=== PATIENT | female | born 1970 | race Hispanic/Latino ===

== ENCOUNTER → 2017-03-13 | Outpatient (CLI) | payer BC ==
[~2017-03-13] MED LIST: ATOR20TA65 PO; FLUO-126 PO; GABA-529 PO; HYDR25TA PO; INSU100I24 SQ; LISI40TA4 PO; METF500T6 PO; PANT40TA25 PO
== END | disposition home or self-care (01) ==
LOC: RAH 14:20
PROVIDERS: ATTEND Internal Medicine
DX: N64.4 Mastodynia (principal); R92.8 Other abnormal and inconclusive findings on diagnostic imaging of breast
CPT/HCPCS: 76641; 77065

== ENCOUNTER → 2017-06-25 | Outpatient (CLI) | payer BC | LOC: RAH 15:44 | PROVIDERS: ATTEND Internal Medicine | DX: R07.81 Pleurodynia (principal) | CPT/HCPCS: 71100 ==

== ENCOUNTER 2017-07-19 13:40 | Inpatient (IN) | payer BC ==
[~2017-07-19] VITALS: Ht 165.1 cm; Wt 118.1 kg
[2017-07-19] MEDS ORDERED: IPRATROPIUM/ALBUTEROL SULFATE 3 ML SOLUTION IH ONE (14:00)
[2017-07-19 14:24] LABS: BASOPHILS % (AUTO) 0.4 % (0.0-5.0); HEMATOCRIT 36.6 % (36-48); MEAN CORPUSCULAR HEMOGLOBIN 30.6 pg (27.0-33.0); MEAN CORPUSCULAR HGB CONC 34.3 g/dL (32.0-36.0); MEAN CORPUSCULAR VOLUME 89.1 fL (79-99); MONOCYTES % (AUTO) 5.3 % (3.0-13.0); NEUTROPHILS % (AUTO) 60.3 % (40.0-77.0); NUCLEATED RED BLOOD CELLS 0.1 % (0.0-0.19); PLATELET COUNT (AUTO) 273 K/uL (130-400); RED BLOOD CELL COUNT(AUTO) 4.11 MIL/uL (4.00-5.50); RED CELL DISTRIBUTION WIDTH 13.1 % (11.0-15.5); WHITE BLOOD COUNT (AUTO) 8.5 K/uL (4.8-10.8)
[2017-07-19 14:43] LABS: CREATININE 0.7 mg/dL (0.5-1.5); POTASSIUM 3.9 mmol/L (3.5-5.1)
[2017-07-19 15:00] LABS: ALBUMIN 3.1 g/dL (3.5-5.0); BILIRUBIN,TOTAL 0.3 mg/dL (0.2-1.0); CREATINE KINASE MB 0.5 ng/mL (0.5-3.6); TOTAL PROTEIN, SERUM 7.3 g/dL (6.0-8.3)
[2017-07-19] MEDS ORDERED: NITROGLYCERIN 0.4 MG SL TAB SL ONE (15:48)
[2017-07-19] MEDS ORDERED: ASPIRIN 325 MG TABLET ONE (15:48)
[2017-07-19 17:02] VITALS: BP 103/72
[2017-07-19] MEDS ORDERED: INSU100I24 SQ (18:10)
[2017-07-19] MEDS ORDERED: FLUO-126 PO (18:10)
[2017-07-19] MEDS ORDERED: GABA-529 PO ×2 (18:10)
[2017-07-19] MEDS ORDERED: METF500T6 PO (18:10)
[2017-07-19] MEDS ORDERED: LISI40TA4 PO (18:10)
[2017-07-19] MEDS ORDERED: ATOR20TA65 PO (18:10)
[2017-07-19] MEDS ORDERED: GLUCAGON 1MG KIT 1 MG ML IM PRN (19:00)
[2017-07-19] MEDS ORDERED: ACETAMINOPHEN 325 MG TAB PO PRN (19:00)
[2017-07-19] MEDS ORDERED: MORPHINE SULFATE 4 MG/1ML SYG IVP PRN (19:00)
[2017-07-19] MEDS ORDERED: DEXTROSE 50%-WATER 50 ML DISP.SYRIN IV PRN (19:00)
[2017-07-19] MEDS: NITROGLYCERIN 1GM/1 INCH PACKET TD SCH (19:03)
[2017-07-19 20:19] VITALS: BP 116/43
[2017-07-19] MEDS: INSULIN R PO SS1 SQ SCH (21:00)
[2017-07-19 21:14] LABS: CREATINE KINASE, TOTAL 44 U/L (21-232); TROPONIN I < 0.04 ng/mL (0.00-0.06)
[2017-07-19 21:42] LABS: CREATINE KINASE MB 0.7 ng/mL (0.5-3.6); MYOGLOBIN 29 ng/mL (10-92)
[2017-07-19] MEDS: METOPROLOL TARTRATE 25 MG TAB PO SCH (21:50)
[2017-07-19] MEDS: ONDANSETRON HCL 4 MG/2 ML VIAL IVP PRN (21:50)
[2017-07-19 23:41] VITALS: BP 126/54
[2017-07-20] VITALS (12 sets, daily range): BP systolic 96–117; BP diastolic 56–73
[2017-07-20] MEDS: NITROGLYCERIN 1GM/1 INCH PACKET TD SCH (02:41)
[2017-07-20 03:18] LABS: HEMOGLOBIN A1C 7.3 % (4.0-6.0)
[2017-07-20 03:21] LABS: INR 0.95 (0.85-1.15)
[2017-07-20 03:33] LABS: CREATINE KINASE MB 0.6 ng/mL (0.5-3.6); CREATINE KINASE, TOTAL 41 U/L (21-232); MYOGLOBIN 28 ng/mL (10-92); TROPONIN I < 0.04 ng/mL (0.00-0.06)
[2017-07-20] MEDS: INSULIN R PO SS1 SQ SCH ×4 (06:31→20:57)
[2017-07-20] MEDS: METOPROLOL TARTRATE 25 MG TAB PO SCH ×3 (09:00→21:01)
[2017-07-20] MEDS: ASPIRIN 325 MG TABLET PO SCH (09:08)
[2017-07-20] MEDS ORDERED: NITROGLYCERIN 1GM/1 INCH PACKET TD SCH (10:46)
[2017-07-20] MEDS: MORPHINE SULFATE 4 MG/1ML SYG IVP PRN ×2 (11:45→18:13)
[2017-07-20] MEDS: ONDANSETRON HCL 4 MG/2 ML VIAL IVP PRN (11:45)
[2017-07-20] MEDS ORDERED: BIVALIRUDIN 250 MG/VIAL IV ONE (12:29)
[2017-07-20] MEDS ORDERED: IOPAMIDOL-370 100 ML VIAL IV ONE (12:29)
[2017-07-20] MEDS ORDERED: HEPARIN SODIUM 1000UNIT/ML 10ML VIAL ONE (12:29)
[2017-07-20] MEDS ORDERED: NITROGLYCERIN 5 MG/ML 10 ML VIAL IV ONE (12:29)
[2017-07-20] MEDS ORDERED: ISOVUE-370 50ML VIAL IV ONE (12:29)
[2017-07-20] MEDS ORDERED: LIDOCAINE HCL 2% 20ML ONE (12:29)
[2017-07-20] MEDS: GABAPENTIN 100 MG CAPSULE PO SCH ×2 (14:00→21:01)
[2017-07-20] MEDS ORDERED: SODIUM CHLORIDE 0.9% 1000ML 1,000 ML IV SCH (14:13)
[2017-07-20] MEDS ORDERED: PHARMACY COMMUNICATION MISC SCH (14:15)
[2017-07-21] VITALS (9 sets, daily range): BP systolic 91–133; BP diastolic 46–80
[2017-07-21] MEDS: MORPHINE SULFATE 4 MG/1ML SYG IVP PRN (00:19)
[2017-07-21] MEDS: INSULIN R PO SS1 SQ SCH ×4 (05:45→21:00)
[2017-07-21] MEDS ORDERED: SODIUM CHLORIDE 0.9% 1000ML 1,000 ML IV ONE (06:39)
[2017-07-21] MEDS ORDERED: IOPAMIDOL-370 100 ML VIAL IV ONE (07:11)
[2017-07-21] MEDS ORDERED: HYDR25TA PO (08:45)
[2017-07-21] MEDS: [UNRECOGNIZED DRUG - OTHER] PO SCH (09:00)
[2017-07-21] MEDS ORDERED: GABAPENTIN 100 MG CAPSULE PO SCH (09:00)
[2017-07-21] MEDS: ATORVASTATIN CALCIUM 20 MG TABLET PO SCH (09:28)
[2017-07-21] MEDS: LISINOPRIL 40 MG TABLET PO SCH (09:28)
[2017-07-21] MEDS: HYDROCHLOROTHIAZIDE 25 MG TABLET PO SCH (09:28)
[2017-07-21] MEDS: GABAPENTIN 100 MG CAPSULE PO SCH ×3 (09:29→21:03)
[2017-07-21] MEDS: METOPROLOL TARTRATE 25 MG TAB PO SCH ×2 (09:29→21:00)
[2017-07-21] MEDS: ASPIRIN 325 MG TABLET PO SCH (09:29)
[2017-07-21] MEDS: FLUOXETINE HCL 20 MG CAPSULE PO SCH (09:29)
[2017-07-21] MEDS ORDERED: SODIUM CHLORIDE 0.9% 250 ML IV SCH (14:30)
[2017-07-22 04:03] VITALS: BP 130/74
[2017-07-22] MEDS: INSULIN R PO SS1 SQ SCH ×2 (06:15→11:30)
[2017-07-22 07:31] VITALS: BP 107/71
[2017-07-22] MEDS: [UNRECOGNIZED DRUG - OTHER] PO SCH (09:00)
[2017-07-22] MEDS: ATORVASTATIN CALCIUM 20 MG TABLET PO SCH (09:29)
[2017-07-22] MEDS: LISINOPRIL 40 MG TABLET PO SCH (09:29)
[2017-07-22] MEDS: ASPIRIN 325 MG TABLET PO SCH (09:29)
[2017-07-22] MEDS: GABAPENTIN 100 MG CAPSULE PO SCH ×2 (09:29→14:57)
[2017-07-22] MEDS: HYDROCHLOROTHIAZIDE 25 MG TABLET PO SCH (09:29)
[2017-07-22] MEDS: FLUOXETINE HCL 20 MG CAPSULE PO SCH (09:29)
[2017-07-22] MEDS ORDERED: PANTOPRAZOLE SODIUM 40 MG TABLET.DR PO SCH (11:00)
[2017-07-22 11:44] VITALS: BP 109/67
[2017-07-22] MEDS ORDERED: PANT40TA25 PO (12:21)
== END 2017-07-22 16:05 | disposition home or self-care (01) | DRG 286 ==
LOC: EDH 13:40 → OBSVTOIN 15:50 → EDHIP 15:50 → 4CH 17:17 → 2DH 07-20 15:35
PROVIDERS: ADMIT Internal Medicine; ATTEND Internal Medicine
PROC: 4A023N7 Measurement of Cardiac Sampling and Pressure, Left Heart, Percutaneous Approach (ICD-10-PCS; principal; 2017-07-20)
PROC: B2111ZZ Fluoroscopy of Multiple Coronary Arteries using Low Osmolar Contrast (ICD-10-PCS; 2017-07-20)
PROC: B2151ZZ Fluoroscopy of Left Heart using Low Osmolar Contrast (ICD-10-PCS; 2017-07-20)
PROC: B41F1ZZ Fluoroscopy of Right Lower Extremity Arteries using Low Osmolar Contrast (ICD-10-PCS; 2017-07-20)
DX: I25.110 Atherosclerotic heart disease of native coronary artery with unstable angina pectoris (principal); I50.33 Acute on chronic diastolic (congestive) heart failure; E11.65 Type 2 diabetes mellitus with hyperglycemia; E11.59 Type 2 diabetes mellitus with other circulatory complications; Z68.41 Body mass index [BMI] 40.0-44.9, adult; E66.01 Morbid (severe) obesity due to excess calories; I11.0 Hypertensive heart disease with heart failure; E78.5 Hyperlipidemia, unspecified; G47.30 Sleep apnea, unspecified; Z79.899 Other long term (current) drug therapy; Z90.711 Acquired absence of uterus with remaining cervical stump; Z90.49 Acquired absence of other specified parts of digestive tract; Z82.49 Family history of ischemic heart disease and other diseases of the circulatory system
CPT/HCPCS: 36415; 71045; 71275; 80053; 82550; 82553; 82948; 83036; 83874; 83880; 84443; 84484; 85025; 85610; 93005; 93306; 93458; 93970; 94640; C1760; C1894; J0583; J1644; J1815; J2270; J2405; J3490; J7030; Q9967

== ENCOUNTER 2019-02-06 20:13 | Emergency (ER) | payer BC, OTHER ==
[~2019-02-06 20:13] MED LIST changes: -FLUO-126 PO; +FLUO20CA34 PO; +METF-444 PO; -METF500T6 PO
[2019-02-06] MEDS ORDERED: LIDOCAINE 5% TOPICAL PATCH TP ONE (20:38)
[2019-02-06] MEDS ORDERED: KETOROLAC TROMETHAMINE 60 MG/2 ML VIAL ONE (20:38)
[2019-02-06] MEDS ORDERED: DIAZEPAM 5 MG TABLET ONE (20:39)
== END 2019-02-06 22:07 | disposition home or self-care (01) ==
LOC: EDH 20:13
DX: M54.5 Low back pain (principal); M54.2 Cervicalgia; E11.9 Type 2 diabetes mellitus without complications; I10 Essential (primary) hypertension; E78.5 Hyperlipidemia, unspecified; Z90.710 Acquired absence of both cervix and uterus; Z90.49 Acquired absence of other specified parts of digestive tract; Z98.890 Other specified postprocedural states
CPT/HCPCS: 96372; 99283; J1885

== ENCOUNTER 2019-06-06 09:49 | Emergency (ER) | payer BC ==
[~2019-06-06 09:49] MED LIST changes: -FLUO20CA34 PO; +FLUO20CA35 PO
[2019-06-06] MEDS ORDERED: ACETAMINOPHEN EXTRA STRENGTH 500 MG TABLET ONE (10:15)
[2019-06-06 10:43] LABS: RAPID GROUP A STREP POSITIVE (NEGATIVE)
[2019-06-06] MEDS ORDERED: CEFTRIAXONE SODIUM 1 GM ONE (11:32)
[2019-06-06] MEDS ORDERED: SODIUM CHLORIDE 0.9% 1000ML 1,000 ML IV ONE (11:33)
[2019-06-06] MEDS ORDERED: SODIUM CHLORIDE 0.9% 50 ML IV ONE (11:33)
[2019-06-06 11:56] LABS: BASOPHILS % (AUTO) 0.8 % (0.0-5.0); EOSINOPHILS % (AUTO) 1.5 % (0.0-8.0); HEMATOCRIT 41.3 % (36-48); LYMPHOCYTES % (AUTO) 34.3 % (21.0-51.0); MEAN CORPUSCULAR HEMOGLOBIN 30.4 pg (27.0-33.0); MEAN CORPUSCULAR HGB CONC 34.9 g/dL (32.0-36.0); MEAN CORPUSCULAR VOLUME 87.1 fL (79-99); MONOCYTES % (AUTO) 5.2 % (3.0-13.0); NEUTROPHILS % (AUTO) 57.7 % (40.0-77.0); PLATELET COUNT (AUTO) 233 K/uL (130-400); RED BLOOD CELL COUNT(AUTO) 4.74 MIL/uL (4.00-5.50); RED CELL DISTRIBUTION WIDTH 11.8 % (11.0-15.5); WHITE BLOOD COUNT (AUTO) 6.6 K/uL (4.8-10.8)
[2019-06-06 12:14] LABS: CREATININE 0.7 mg/dL (0.5-1.5)
[2019-06-06 12:19] LABS: ALBUMIN 3.2 g/dL (3.5-5.0); BILIRUBIN,TOTAL 0.4 mg/dL (0.2-1.0); TOTAL PROTEIN, SERUM 7.7 g/dL (6.0-8.3)
== END 2019-06-06 13:06 | disposition home or self-care (01) ==
LOC: EDH 09:49
DX: J02.0 Streptococcal pharyngitis (principal); M79.10 Myalgia, unspecified site; I10 Essential (primary) hypertension; E11.9 Type 2 diabetes mellitus without complications; Z87.891 Personal history of nicotine dependence; Z98.890 Other specified postprocedural states; Z90.49 Acquired absence of other specified parts of digestive tract
CPT/HCPCS: 36415; 71045; 80053; 82948; 85025; 87804 ×2; 87880; 96374; 99284; J0696; J7030